=== PATIENT | female | born 1970 | race Caucasian/White ===

== ENCOUNTER 2023-12-16 06:38 | Outpatient (OUT) | payer OTHER, SELFPAY ==
[2023-12-16 06:57] LABS: Basophils Percent Auto 0.7 % (0.2-2.0); Eosinophils Percent Auto 0.9 % (0.9-7.0); Hematocrit 39.7 % (36.0-48.0); Hemoglobin 12.5 g/dL (12.0-16.0); Immature Granulocytes Abs Auto 0.01 10^3/uL (0.00-0.03); Immature Granulocytes Pct Auto 0.2 % (0.0-0.5); Lymphocytes Absolute Auto 2.5 10^3/uL (1.2-3.8); Lymphocytes Percent Auto 54.6 % (20.5-60.0); Mean Corpuscular HGB Conc 31.5 g/dL (29.9-35.2); Mean Corpuscular Hemoglobin 28.8 pg (26.7-34.0); Mean Corpuscular Volume 91.5 fL (81.0-99.0); Mean Platelet Volume 9.2 fL (9.5-13.5); Monocytes Absolute Auto 0.4 10^3/uL (0.3-0.8); Monocytes Percent Auto 9.1 % (1.7-12.0); Neutrophils Absolute Auto 1.6 10^3/uL (1.4-6.5); Neutrophils Percent Auto 34.5 % (43.0-75.0); Platelet Count 230 10^3/uL (150-450); Red Blood Count 4.34 10^6/uL (4.20-5.40); Red Cell Distribution Width 12.3 % (11.0-15.0); White Blood Count 4.5 10^3/uL (4.0-11.0)
[2023-12-16 07:10] LABS: Estimated Average Glucose 117 mg/dL; Glycohemoglobin A1C 5.7 % (4.5-6.2)
[2023-12-16 07:20] LABS: Alanine Aminotransferase 18 U/L (14-59); Albumin Level 3.7 g/dL (3.4-5.0); Alkaline Phosphatase 52 U/L (46-116); Anion Gap 9.2; Aspartate Amino Transferase 19 U/L (15-37); BUN Creatinine Ratio 12.9; Bilirubin Direct 0.1 mg/dL (0.0-0.2); Bilirubin Total 0.6 mg/dL (0.2-1.0); Calcium 9.1 mg/dL (8.5-10.1); Carbon Dioxide 31.7 mmol/L (21.0-32.0); Chloride 104 mmol/L (98-107); Chol HDL Ratio 2.6; Cholesterol 176 mg/dL (<=200); Estimated GFR (African America >60 (>=60); Estimated GFR (Non-African Ame >60 (>=60); Globulin 3.8 g/dL; Glucose 110 mg/dL (74-106); HDL Cholesterol 68 mg/dL (40-60); Potassium 3.9 mmol/L (3.5-5.1); Sodium 141 mmol/L (136-145); Total Protein 7.5 g/dL (6.4-8.2); Triglycerides 53 mg/dL (<=150); VLDL CHOLESTEROL 10.6 mg/dL
== END 2023-12-16 06:39 | disposition home or self-care (01) ==
LOC: LAB 06:38
PROVIDERS: PCP Family Medicine; Visit Provider Family Medicine
DX: Z00.00 Encounter for general adult medical examination without abnormal findings (principal); R73.01 Impaired fasting glucose
CPT/HCPCS: 36415; 80048; 80061; 80076; 83036; 85025

== ENCOUNTER 2024-03-13 10:07 | Outpatient (OUT) | payer OTHER, SELFPAY ==
--- NOTE | 2024-03-13 10:09 | MM_ITS ---
Patient Name: MATHEW RAMOS MR#: [id number] : 1970 Exam Date: 03/13/2024 Ordering Doctor: DR. ALEXIA ROJO D.O. RADIOLOGY REPORT PROCEDURE: MM TOMOSYNTHESIS SCREENING BI COMPARISON: MG MAMM SCREEN 3D JENNIFER CAD, 02/01/2023. MG MAMM SCREEN 3D JENNIFER CAD, 01/30/2022. MG MAMM SCREEN 3D JENNIFER CAD, 01/02/2021. MG MAMM JENNIFER SCRN W CAD DIG, 10/01/2013. INDICATIONS: Screening Calculator Name NCI Breast Cancer Risk Assessment Tool 5 Year Breast Cancer Risk 2.10% Lifetime Breast Cancer Risk 16.30% Personal Breast Cancer No Personal Ovarian Cancer No Treatments None Family Cancers Mother with breast cancer at age ~58. LOCATION: [facility] BREAST COMPOSITION: The breasts are heterogeneously dense,which may obscure small masses. FINDINGS: DIAGNOSTIC CATEGORY 1--NEGATIVE. RIGHT BREAST: No significant suspicious finding. No significant change has occurred. LEFT BREAST: No significant suspicious finding. No significant change has occurred. RECOMMENDATIONS: ROUTINE MAMMOGRAM AND CLINICAL EVALUATION IN 12 MONTHS. PLEASE NOTE: A NORMAL MAMMOGRAM DOES NOT EXCLUDE THE POSSIBILITY OF BREAST CANCER. A CLINICALLY SUSPICIOUS PALPABLE LUMP SHOULD BE BIOPSIED. Dictated by: Adan Pritchett M.D. on 03/13/2024 at 14:17 Approved by: Adan Pritchett M.D. on 03/13/2024 at 14:19
--- OUTSIDE RECORDS SUMMARY | 2024-03-13 10:29 | XMS_ITS | CCD ---
Author Organization [facility] Care Team Providers Care [employer] Teacher Name Role Phone Piter [place] Unavailable DR ADAN PRITCHETT Consulting Unavailable ALEXIA ROJO Admitting Unavailable ALEXIA ROJO Attending Unavailable DR PITER HOPE Primary Care Unavailable ALEXIA ROJO Consulting Unavailable DR PITER HOPE Primary Care Unavailable KELLY MILLER Attending Unavailable KELLY MILLER Consulting Unavailable KELLY MILLER Admitting Unavailable Medications Current Medications Medication Drug Class(es) Dates Sig (Normalized) Sig (Original) ibuprofen 600 mg oral tablet (3 sources) Nonsteroidal Anti-inflammatory Drug take 1 tablet by mouth three times daily at mealtime as needed Ibuprofen 600 MG 1 tablet with food or milk as needed Orally Three times a day Active Problems Problem Classification Problem Date Documented Da te Episodic/Chronic Administrative/social admission (5 sources) Other specified counseling; Translations: [Encounter for pre-employment examination] Onset: 12-18-2021 Resolved: 12-18-2021 Episodic Diabetes mellitus without complication (2 sources) Impaired fasting glucose Onset: 12-18-2021 Resolved: 12-18-2021 Episodic Osteoarthritis (8 sources) Degenerative joint disease of hand; Translations: [Primary osteoarthritis, left hand] Chronic Other nutritional; endocrine; and metabolic disorders (3 sources) Obese class I; Translations: [Obesity, unspecified] Chronic Other nutritional; endocrine; and metabolic disorders (1 source) Obesity, unspecified Chronic Other screening for suspected conditions (not mental disorders or infectious disease) (7 sources) Encounter for screening for malignant neoplasm of colon; Translations: [Encounter for screening mammogram for malignant neoplasm of breast] Onset: 02-01-2023 Episodic Residual codes; unclassified (1 source) Family history of malignant neoplasm of breast; Translations: [FAMILY HX MALIG NEOPLASM OF BREAST] Onset: 02-07-2023 Episodic Results Test Name Value Interpretation Reference Range Facil ity Occult Blood - x3on 02-15-20 Hemoglobin.gastro intestinal Ql (Stl) Negative [facility] Other QUANTIFERON TB GOLD PLUSon 0 02-03-2023 QuantiFERON Criteria Comment Normal [facility] Comment on above: Result Comment: Chau tiFERON-TB Gold Plus is a qualitative indirect test for M tuberculosis infection (including disease) and is intended for use in conjunction with risk assessment, radiography, and other medical and diagnostic evaluations. The QuantiFERON-TB Gold Plus result is determined by subtracting the Nil value from either TB antigen (Ag) value. The Mitogen tube serves as a control for the test. Performed By: #### Q NTTB #### [facility] [address] [place] [address] Dr. Lul Mckeon QuantiFERON Incubation Incubation performed. Normal [facility] Comment on above: Performed By: #### Q NTTB #### [facility] [address] [place] [address] Dr. Lul Mckeon QuantiFERON Mitogen Value 8.47 IU/mL Normal [facility] Comment on above: Performed By: #### Q NTTB #### [facility] [address] [place] [address] Dr. Lul Mckeon QuantiFERON Nil Value 0.01 IU/mL Normal [facility] Comment on above: Performed By: #### Q NTTB #### [facility] [address] [place] [address] Dr. Lul Mckeon QuantiFERON TB1 Ag Value 0.18 IU/mL Normal [facility] Comment on above: Performed By: #### Q NTTB #### [facility] [address] [place] [address] Dr. Lul Mckeon QuantiFERON TB2 Ag Value 0.10 IU/mL Normal [facility] Comment on above: Performed By: #### Q NTTB #### [facility] [address] [place] [address] Dr. Lul Mckeon QuantiFERON-TB Gold Plus Negative Normal Negative [facility] Comment on above: Result Comment: No r esponse to M tuberculosis antigens detected. Infection with M tuberculosis is unlikely, but high risk individuals should be considered for additional testing (ATS/IDSA/CDC Clinical Practice Guidelines, 2017). The reference range is an Antigen minus Nil result of <0.35 IU/mL. Chemiluminescence immunoassay methodology Performed By: #### Q NTTB #### [facility] [address] [place] [address] Dr. Lul Mckeon HEPATITIS B SURFACE ANTIBODY , QUANTon 02-02-2023 Hepatitis B Surf AB Quant >1000.0 Normal Immunity>9.9 [facility] Comment on above: Result Comment: Stat us of Immunity Anti-HBs Level Inconsistent with Immunity 0.0 - 9.9 Consistent with Immunity >9.9 Performed By: #### H EPBSRF #### [facility] [address] [place] [address] Dr. Lul Mckeon MMR IMMUNITYon 02-02-2023 Mumps Abs, IgG 81.3 AU/mL Normal Immune >10.[address] [facility] Comment on above: Result Comment: Nega tive <9.0 Equivocal 9.0 - 10.9 Positive >10.9 A positive result generally indicates past exposure to Mumps virus or previous vaccination. Performed By: #### M MRIMMU #### [facility] [address] [place] [address] Dr. Lul Mckeon Rubella Antibodies, IgG 6.39 index Normal Immune >0.99 [facility] Comment on above: Result Comment: Non- immune <0.90 Equivocal 0.90 - 0.99 Immune >0.99 Performed By: #### M MRIMMU #### [facility] [address] [place] [address] Dr. Lul Mckeon Rubeola Ab, IgG 57.8 AU/mL Normal Immune >16.4 [facility] Comment on above: Result Comment: Nega tive <13.5 Equivocal 13.5 - 16.4 Positive >16.4 Presence of antibodies to Rubeola is presumptive evidence of immunity except when acute infection is suspected. Performed By: #### M MRIMMU #### [facility] [address] [address] [address] Lul Mckeon VARICELLA IGG ABon 3 Varicella Zoster IgG 2948 index Normal Immune >165 [facility] Comment on above: Result Comment: Nega tive <135 Equivocal 135 - 165 Positive >165 A positive result generally indicates exposure to the pathogen or administration of specific immunoglobulins, but it is not indication of active infection or stage of disease. Performed By: #### V ARCEL #### [facility] [address] [address] [address] Lul Mckeon MG MAMM SCREEN 3D JENNIFER CADon 02-01-2023 MG MAMM SCREEN 3D JENNIFER CAD Patient: MATHEW RAMOS Exam Date: 02/01/2023 : 1970 Gender:F Ordering : DR. ALEXIA ROJO D.O. Admission #: [id number] Family : DR PITER HOPE Order #: [id number] CLICK HERE TO VIEW EXAM RADIOLOGY REPORT PROCEDURE: MAMMOGRAM SCREENING 3D BILATERAL CAD COMPARISON: MG MAMM SCREEN 3D JENNIFER CAD, 01/02/2021. MG MAMM SCREEN JENNIFER W CAD, 12/25/2019. MG MAMM JENNIFER SCRN W CAD DIG, 10/01/2013. MG MAMM SCREEN 3D JENNIFER CAD, 01/30/2022. INDICATIONS: Screening mammography Calculator Name NCI Breast Cancer Risk Assessment Tool 5 Year Breast Cancer Risk 2.00% Lifetime Breast Cancer Risk 16.60% Personal Breast Cancer No Personal Ovarian Cancer No Treatments None Family Cancers Mother with breast cancer at age 58. LOCATION: [facility] BREAST COMPOSITION: Heterogeneously dense,which may obscure small masses. FINDINGS: DIAGNOSTIC CATEGORY 2--BENIGN FINDING: RIGHT BREAST: No significant suspicious finding. Chronic benign-appearing lymph node lower-outer quadrant. No significant change has occurred. LEFT BREAST: No significant suspicious finding. No significant change has occurred. RECOMMENDATIONS: ROUTINE MAMMOGRAM AND CLINICAL EVALUATION IN 12 MONTHS. PLEASE NOTE: A NORMAL MAMMOGRAM DOES NOT EXCLUDE THE POSSIBILITY OF BREAST CANCER. A CLINICALLY SUSPICIOUS PALPABLE LUMP SHOULD BE BIOPSIED. Dictated by: Adan Pritchett M.D. on 02/01/2023 at 12:02 Approved by: Adan Pritchett M.D. on 02/01/2023 at 12:04 Normal [facility] Vital Signs Date Time Vital Sign Value Performing Clinician Facility 12-20-2022 09:00-0500 Body height 167.64 cm Piter Oberer Other [facility] Other 12-20-2022 09:00-0500 Body mass index (BMI) [Ratio] 31.58 kg/m2 Piter Oberer Other [facility] Other 12-20-2022 09:00-0500 Body temperature 98 [degF] Piter Oberer Other [facility] Other 12-20-2022 09:00-0500 Body weight 88.77 kg Piter Oberer Other [facility] Other 12-20-2022 09:00-0500 Diastolic blood pressure 77 mm[Hg] Piter Oberer Other [facility] Other 12-20-2022 09:00-0500 Respiratory rate 16 /min Piter Oberer Other [facility] Other 12-20-2022 09:00-0500 SaO2% (BldA) [Mass fraction] 100 % Piter Oberer Other [facility] Other 12-20-2022 09:00-0500 Systolic blood pressure 126 mm[Hg] Ipter Oberer Other [facility] Other 12-18-2021 11:00-0500 Body height 167.64 cm Piter Oberer Other [facility] Other 12-18-2021 11:00-0500 Body mass index (BMI) [Ratio] 31.28 kg/m2 Piter Oberer Other [facility] Other 12-18-2021 11:00-0500 Body temperature 97.9 [degF] Piter Oberer Other [facility] Other 12-18-2021 11:00-0500 Body weight 87.91 kg Piter Oberer Other [facility] Other 12-18-2021 11:00-0500 Diastolic blood pressure 68 mm[Hg] Piter Oberer Other [facility] Other 12-18-2021 11:00-0500 Respiratory rate 16 /min Piter Oberer Other [facility] Other 12-18-2021 11:00-0500 SaO2% (BldA) [Mass fraction] 97 % Piter Oberer Other [facility] Other 12-18-2021 11:00-0500 Systolic blood pressure 127 mm[Hg] Piter Oberer Other [facility] Other Encounters Encounter Date Encounter Type Care Provider Facility Start: 02-14-2023 End: 02-14-2023 ambulatory Piter Oberer Other [facility] Other Start: 02-14-2023 Nursing evaluation o f patient and report Piter Oberer [facility] Start: 02-01-2023 End: 02-02-[address] ADAN PRITCHETT Facility: Start: 12-20-2022 End: 12-20-2022 ambulatory Piter Oberer Other [facility] Other Start: 12-20-2022 Encounter for genera l adult medical examination without abnormal findings Piter Oberer [facility] Start: 12-20-2022 Periodic preventive med est patient 40-64yrs Piter Oberer [facility] Start: 12-18-2021 End: 12-18-2021 ambulatory Piter Oberer Other [facility] Other Start: 12-18-2021 Encounter for genera l adult medical examination without abnormal findings Piter Oberer [facility] Start: 12-18-2021 Periodic preventive med est patient 40-64yrs Piter Oberer [facility] Immunizations Immunization Date Immunization Notes Care Provider Fa cility 12-31-2019 influenza, injectable, quadrivalent, preservative free Piter Oberer Other [facility] Other 12-31-2019 tetanus toxoid, reduced diphtheria toxoid, and acellular pertussis vaccine, adsorbed Piter Oberer Other [facility] Other 11-05-2011 tetanus toxoid, reduced diphtheria toxoid, and acellular pertussis vaccine, adsorbed Pitre Oberer Other [facility] Other NEGATED: Highlighted row has not occurred!12-27-2020 influenza, seasonal, injectable Patient Objection Piter Oberer Other [facility] Other NEGATED: Highlighted row has not occurred!10-24-2017 influenza, seasonal, injectable Patient Objection Piter Oberer Other [facility] Other Payers Date Payer Category Payer Unknown [id number] 1957 Self-pay 1957 Unknown [id number] . [id number] Unknown [id number] Social History Date Type Detail Facility Unknown if ever smoked [facility] Other Sex Assigned At Sex Assigned At Bir th [facility] Other Evaluation note 02-14-2023 Note Date & Type Note Facility 02-14-2023 Evaluation note Encounter Date Diagnosis Assessment Notes February, Colon cancer screening (ICD-10 - Z12.11) [facility] Other Evaluation note 12-20-2022 Note Date & Type Note Facility 12-20-2022 Evaluation note Encounter Date Diagnosis Assessment Notes Dec, Fasting hyperglycemia (ICD-10 - R73.01) She had a single episode of elevated fasting blood sugar, hemoglobin A1c was normal. She has no family history of diabetes. We will repeat fasting blood sugar and hemoglobin A1c with next year's checkup. I did offer to do labs sooner and she declined, Prediabetes: strategies for a healthy life material was published Dec, Colon cancer screening (ICD-10 - Z12.11) We discussed that if she has family history of colon polyps that the recommended screening for her is colonoscopy. We also again discussed, in general, that I view the colonoscopy as the [place] and stool sampling techniques as the [place] . She elected to take 3 home Hemoccult cards and if she decides to pursue colonoscopy she will call us for referral. Dec, Obesity (BMI 30.0-34.9) (ICD-10 - E66.9) Healthy diet, exercise, weight loss encouraged Dec, Generalized OA (ICD-10 - M15.9) I simply note this on exam. We did not discuss arthritis today Dec, Well adult exam (ICD-10 - Z00.00) Well care discussed She will follow-up with Dr. Rojo, colon cancer screening as above. Pending that, cancer screening will be up-to-date. Healthy diet, exercise, weight encouraged Discussed vaccines. She had natural shingles. She does not want any vaccines including flu shot, Shingrix, COVID-vaccine. , Health screenings for women material was published Dec, Other RTO 1 year preceded by fasting CBC, BMP, hepatic panel, lipid profile, hemoglobin A1c and sooner as needed. [facility] Other Evaluation note 12-18-2021 Note Date & Type Note Facility 12-18-2021 Evaluation note Encounter Date Diagnosis Assessment Notes Dec, Wellness examination (ICD-10 - Z00.00) Well care discussed Healthy activity, diet, staying physically fit encouraged Female cancer screening up-to-date Dr. Rojo Colon cancer screening options discussed, stool sampling such as Hemoccult versus colonoscopy. Told her it is the [place] versus the [place] . She wants to think about it and she will call us with her screening decision. If she chooses colonoscopy, we will refer her. I did tell her it is important to screen at least in some fashion Except for COVID, vaccines up-to-date. See dictation below. Because they were normal last year, we will repeat screening labs in 2 to 4 years from now. Dec, Counseled about COVID-19 virus infection (ICD-10 - Z71.89) Discussed the Covid vaccine is not nearly as new as it was a couple years ago and there is a lot of safety information about it. It appears to be quite safe. We also discussed worldwide we are approaching 6 million deaths, in [place] 1 million deaths. We did discuss that natural COVID (which she had) does confer some immunity. It perhaps is not as strong as the vaccine. We discussed that the strongest immunity appears to be in those who have had natural Covid and the vaccine. She still is not ready. She knows the vaccine is readily available in the community now if she elects to pursue it. Dec, Fasting hyperglycemia (ICD-10 - R73.01) There is no known family history of diabetes. We discussed last years fasting hyperglycemia, normal hemoglobin A1c. I offered to repeat hemoglobin A1c. She elected to wait 2 to 4 years. Dec, Other RTO 1 year and sooner as needed. Should not need labs next visit. [facility] Other History general Narrative - Reported Note Date & Type Note Facility History general Narrative - Reported Type Medical History Dr Rojo- female exams Medical History Natural Shingles- 2018 [facility] Other Summary Purpose Family History No Family History Records Found Advance Directives No Advanced Directives Records Found Additional Source Comments REASON FOR VISIT (unrecogniz ed section and content) 1 year Follow up, GERD impro ralph LB, pharmacy [facility] LB, doing well no concerns at this time LB, Mammogram last December, Age 89 year Follow up, pharmacy: [facility] [place] - jld, refills: none needed - jld, mammogram: 01.30.22 - jld, flu shot 12.31.19 - declines today - jld, colonoscopy: was supposed to last year, did not schedule. Open to hemoccult - jld, pt is doing well, denies c/o at this time - mid, Dr. Alexandre results INFORMATION SOURCE (unrecogn ized section and content) DATE CREATED AUTHOR 02/08/2023 [facility] FOR RECORDS PERTAINING TO PATIENTS WHO ARE OR HAVE BEEN ENROLLED IN A CHEMICAL DEPENDENCY/SUBSTANCEABUSE PROGRAM, SOME INFORMATION MAY BE OMITTED. This clinical summary was aggregated from multiple sources. Caution should be exercised in using it in the provision of clinical care. This summary normalizes information from multiple sources, and as a consequence, information in this document may materially change the coding, format and clinical context of patient data. In addition, data may be omitted in some cases. CLINICAL DECISIONS SHOULD BE BASED ON THE PRIMARY CLINICAL RECORDS. [email or web address] provides no warranty or guarantee of the accuracy or completeness of information in this document.
== END 2024-03-13 10:08 | disposition home or self-care (01) ==
LOC: MAMMO 10:07
PROVIDERS: PCP Family Medicine; Visit Provider Obstetrics & Gynecology
DX: Z12.31 Encounter for screening mammogram for malignant neoplasm of breast (principal); Z80.3 Family history of malignant neoplasm of breast
CPT/HCPCS: 77063; 77067

== ENCOUNTER 2024-12-29 09:59 | Outpatient (OUT) | payer OTHER, SELFPAY ==
--- OUTSIDE RECORDS SUMMARY | 2024-12-29 10:05 | XMS_ITS | CCD ---
Author Organization [facility] Care Team Providers Care Marriage And Family Teacher Name Role Phone Piter Hope Unavailable DR ADAN PRITCHETT Consulting Unavailable ALEXIA ROJO Admitting Unavailable ALEXIA ROJO Attending Unavailable DR PITER HOPE Primary Care Unavailable ALEXIA ROJO Consulting Unavailable DR PITER HOPE Primary Care Unavailable KELLY MILLER Attending Unavailable KELLY MILLER Consulting Unavailable KELLY MILLER Admitting Unavailable SRINIVAS ROSALES Attending Unavailable PITER HOPE Referring Unavailable Steven Kam DO Attending Provider Medications Current Medications Medication Drug Class(es) Dates Sig (Normalized) Sig (Original) ibuprofen 600 mg oral tablet (5 sources) Nonsteroidal Anti-inflammatory Drug Start: 12-23-2023 End: 12-22-2024 take 1 tablet by mouth three times daily as needed Ibuprofen 600 mg tablet Active 600 MG PO Three times daily as needed December 22, 2024 2:28pm 1 tablet with food or milk as needed Orally Three times a day take 1 tablet by lul th three times daily at mealtime as needed Ibuprofen 600 MG 1 tablet with food or milk as needed Orally Three times a day Active Problems Problem Classification Problem Date Documented Da te Episodic/Chronic Administrative/social admission (5 sources) Other specified counseling; Translations: [Encounter for pre-employment examination] Onset: 12-18-2021 Resolved: 12-18-2021 Episodic Diabetes mellitus without complication (3 sources) Impaired fasting glucose; Translations: [Impaired glucose tolerance] Onset: 12-18-2021 Resolved: 12-18-2021 Episodic Osteoarthritis (9 sources) Degenerative joint disease of hand; Translations: [Primary osteoarthritis, left hand] Chronic Other infections; including parasitic (1 source) History of herpes zoster; Translations: [Personal history of other infectious and parasitic diseases] 12-23-2023 Episodic Other nutritional; endocrine; and metabolic disorders (4 sources) Obese class I; Translations: [Obesity, unspecified] 12-23-2023 Chronic Other nutritional; endocrine; and metabolic disorders (1 source) Obesity, unspecified Chronic Other screening for suspected conditions (not mental disorders or infectious disease) (8 sources) Encounter for screening for malignant neoplasm of colon; Translations: [Encounter for screening mammogram for malignant neoplasm of breast] Onset: 02-01-2023 Episodic Residual codes; unclassified (1 source) Family history of malignant neoplasm of breast; Translations: [FAMILY HX MALIG NEOPLASM OF BREAST] Onset: 02-07-2023 Episodic Residual codes; unclassified (1 source) Family history of polyp of colon; Translations: [Family history of colonic polyps] 12-23-2023 Episodic Results Test Name Value Interpretation Reference Range Facil ity Occult Blood - x3on 02-15-20 Hemoglobin.gastro intestinal Ql (Stl) Negative [facility] Other QUANTIFERON TB GOLD PLUSon 0 02-03-2023 QuantiFERON Criteria Comment Normal [facility] Comment on above: Result Comment: Chau tiFERON-TB [...] test. Performed By: #### Q NTTB #### [facility] [address] [place] [address] Dr. Lul Mckeon QuantiFERON Incubation Incubation performed. Normal [facility] Comment on above: Performed By: #### Q NTTB #### [facility] [address] [address] [address] Lul Mckeon QuantiFERON Mitogen Value 8.47 IU/mL Normal [facility] Comment on above: Performed By: #### Q NTTB #### [facility] [address] [place] [address] Dr. Lul Mckeon QuantiFERON Nil Value 0.01 IU/mL [facility] Comment on above: Performed By: #### Q NTTB #### [facility] [address] [place] [address] Dr. Lul Mckeon QuantiFERON TB1 Ag Value 0.18 IU/mL Normal [facility] Comment on above: Performed By: #### Q NTTB #### [facility] [address] [address] [address] Lul Mckeon QuantiFERON TB2 Ag Value 0.10 IU/mL Normal [facility] Comment on above: Performed By: #### Q NTTB #### [facility] [address] [address] [address] Lul Mckeon QuantiFERON-TB Gold Plus Negative Normal Negative [facility] Comment on above: Result Comment: No r esponse to M tuberculosis antigens detected. Infection with M tuberculosis is unlikely, but high risk individuals should be considered for additional testing (ATS/IDSA/CDC Clinical Practice Guidelines, 2017). The reference range is an Antigen minus Nil result of <0.35 IU/mL. Chemiluminescence immunoassay methodology Performed By: #### Q NTTB #### [facility] [address] [place] [address] Dr. Lul Mckeon HEPATITIS B SURFACE ANTIBODY , QUANTon 02-02-2023 Hepatitis B Surf AB Quant >1000.0 Normal Immunity>9.9 [facility] Comment on above: Result Comment: Stat us of Immunity Anti-HBs Level Inconsistent with Immunity 0.0 - 9.9 Consistent with Immunity >9.9 Performed By: #### H EPBSRF #### [facility] [address] [place] [address] Dr. Lul Mckeon MMR IMMUNITYon 02-02-2023 Mumps Abs, IgG 81.3 AU/mL Normal Immune >10.[address] [facility] Comment on above: Result Comment: Nega tive <9.0 Equivocal 9.0 - 10.9 Positive >10.9 A positive result generally indicates past exposure to Mumps virus or previous vaccination. Performed By: #### M MRIMMU #### [facility] [address] [place] [address] Dr. Lul Mckeon Rubella Antibodies, IgG 6.39 index Normal Immune >0.[address] [facility] Comment on above: Result Comment: Non- immune <0.90 Equivocal 0.90 - 0.99 Immune >0.99 Performed By: #### M MRIMMU #### [facility] [address] [place] [address] Dr. Lul Mckeon Rubeola Ab, IgG 57.8 AU/mL Normal Immune >16.4 [facility] Comment on above: Result Comment: Nega tive <13.5 Equivocal 13.5 - 16.4 Positive >16.4 Presence of antibodies to Rubeola is presumptive evidence of immunity except when acute infection is suspected. Performed By: #### M MRIMMU #### [facility] [address] [place] [address] Dr. Lul Mckeon VARICELLA IGG ABon 3 Varicella Zoster IgG 2948 index Normal Immune >[address] [facility] Comment on above: Result Comment: Nega tive <135 Equivocal 135 - 165 Positive >165 A positive result generally indicates exposure to the pathogen or administration of specific immunoglobulins, but it is not indication of active infection or stage of disease. Performed By: #### V ENE #### [facility] [address] [place] [address] Dr. Lul Mckeon MG MAMM SCREEN 3D JENNIFER CADon 02-01-2023 MG MAMM SCREEN 3D JENNIFER CAD Patient: KAYLI RAMOS Exam Date: 02/01/2023 : 1970 Gender:F Ordering : DR. ALEXIA ROJO D.O. Admission #: [id number] Family : DR PITER HOPE Order #: [id number] CLICK HERE TO VIEW EXAM RADIOLOGY REPORT [...] breast cancer at age 60. LOCATION: [facility] BREAST COMPOSITION: Heterogeneously dense,which may obscure [...] Pritchett M.D. on 02/01/2023 at 12:04 Normal [facility] Vital Signs Date Time Vital Sign Value Performing Clinician Facility 12-22-2024 11:46-0400 Body height 167.64 cm Steven Visci DO Work Phone: [facility] 12-22-2024 11:46-0400 Body mass index (BMI) [Ratio] 33.6 kg/m2 Steven Visci DO Work Phone: [facility] 12-22-2024 11:46-0400 Body weight 94.54 kg Steven Visci DO Work Phone: [facility] 12-22-2024 11:46-0400 Diastolic blood pressure 83 mm[Hg] Steven Visci DO Work Phone: [facility] 12-22-2024 11:46-0400 Heart rate 80 /min Steven Visci DO Work Phone: [facility] 12-22-2024 11:46-0400 Respiratory rate 16 /min Steven Visci DO Work Phone: [facility] 12-22-2024 11:46-0400 SaO2% (BldA) [Mass fraction] 97 % Steven Visci DO Work Phone: [facility] 12-22-2024 11:46-0400 Systolic blood pressure 125 mm[Hg] Steven Visci DO Work Phone: [facility] 12-20-2022 09:00-0500 Body height 167.64 cm Piter Oberer Other [facility] Other 12-20-2022 09:00-0500 Body mass index (BMI) [Ratio] 31.58 kg/m2 Piter Oberer Other [facility] Other 12-20-2022 09:00-0500 Body temperature 98 [degF] Piter Oberer Other [facility] Other 12-20-2022 09:00-0500 Body weight 88.77 kg Piter Oberer Other [facility] Other 12-20-2022 09:00-0500 Diastolic blood pressure 77 mm[Hg] Piter Oberer Other [facility] Other 12-20-2022 09:00-0500 Respiratory rate 16 /min Piter Oberer Other [facility] Other 12-20-2022 09:00-0500 SaO2% (BldA) [Mass fraction] 100 % Piter Oberer Other [facility] Other 12-20-2022 09:00-0500 Systolic blood pressure 126 mm[Hg] Piter Oberer Other [facility] Other 12-18-2021 11:00-0500 Body height 167.64 cm Piter Oberer Other [facility] Other 12-18-2021 11:00-0500 Body mass index (BMI) [Ratio] 31.28 kg/m2 Piter Oberer Other [facility] Other 12-18-2021 11:00-0500 Body temperature 97.9 [degF] Piter Oberer Other [facility] Other 12-18-2021 11:00-0500 Body weight 87.91 kg Piter Oberer Other [facility] Other 12-18-2021 11:00-0500 Diastolic blood pressure 68 mm[Hg] Piter Oberer Other [facility] Other 12-18-2021 11:00-0500 Respiratory rate 16 /min Piter Oberer Other [facility] Other 12-18-2021 11:00-0500 SaO2% (BldA) [Mass fraction] 97 % Piter Oberer Other [facility] Other 12-18-2021 11:00-0500 Systolic blood pressure 127 mm[Hg] Piter Oberer Other [facility] Other Encounters Encounter Date Encounter Type Care Provider Facility Start: 12-22-2024 End: 12-22-2024 ambulatory Steven Visci DO Work Phone: [facility] Work Phone: Start: 12-22-2024 End: 12-22-2024 Patient encounter procedure Steven Visci DO Work Phone: [facility] Work Phone: Start: 04-02-2024 End: 04-02-2024 ambulatory SRINIVAS ROSALES Not Available Start: 02-14-2023 End: 02-14-2023 ambulatory Piter Oberer Other [facility] Other Start: 02-14-2023 Nursing evaluation o f patient and report Piter Oberer [facility] Start: 02-01-2023 End: 02-02-[address] ADAN PRITCHETT Facility:[facility] Start: 12-20-2022 End: 12-20-2022 ambulatory Piter Oberer Other [facility] Other Start: 12-20-2022 Encounter for genera l adult medical examination without abnormal findings Piter Oberer [facility] Start: 12-20-2022 Periodic preventive med est patient 40-64yrs Piter Oberer [facility] Start: 12-18-2021 End: 12-18-2021 ambulatory Piter Oberer Other [facility] Other Start: 12-18-2021 Encounter for genera l adult medical examination without abnormal findings Piter Oberer [facility] Start: 12-18-2021 Periodic preventive med est patient 40-64yrs Piter Oberer [facility] Start: 01-18-2004 Evaluation and management of inpatient Steven Visci DO Work Phone: [facility] Work Phone: Immunizations Immunization Date Immunization Notes Care Provider Fa [facility] 12-31-2019 influenza, injectable, quadrivalent, preservative free Piter Oberer Other [facility] 12-31-2019 tetanus toxoid, reduced diphtheria toxoid, and acellular pertussis vaccine, adsorbed Piter Oberer Other [facility] 11-05-2011 tetanus toxoid, reduced diphtheria toxoid, and acellular pertussis vaccine, adsorbed Piter Oberer Other [facility] NEGATED: Highlighted row has not occurred!12-27-2020 influenza, seasonal, injectable Patient Objection Piter Oberer Other [facility] Other NEGATED: Highlighted row has not occurred!10-24-2017 influenza, seasonal, injectable Patient Objection Pitre Hope Other [facility] Other Payers Date Payer Category Payer Private Health Insurance [id number] 1970 Unknown [id number] 1970 Unknown [id number] 1957 Self-pay 1957 Unknown [id number] 2. [id number] Unknown [id number] Social History Date Type Detail Facility Unknown if ever smoked [facility] Other Sex Assigned At Sex Assigned At Bir th [facility] Other Start: 12-22-2024 Tobacco smoking status NHIS Never smoked tobacco (finding) [facility] Start: 12-22-2024 Sex Female (finding) [place] Start: 1970 Sex Assigned At Female F [facility] Evaluation note 02-14-2023 Note Date & Type Note Facility 02-14-2023 Evaluation note Encounter Date Diagnosis Assessment Notes February, Colon cancer screening (ICD-10 - Z12.11) [facility] Other Evaluation note 12-20-2022 Note Date & [...] that I view the colonoscopy as the [place] and stool sampling techniques as the [place] [...] profile, hemoglobin A1c and sooner as needed. [facility] Other Evaluation note 12-18-2021 Note Date & [...] needed. Should not need labs next visit. [facility] Other Evaluation note Note Date & Type Note Facility Evaluation note No assessment information availa [facility] Work Phone: History general Narrative - Reported Note Date & Type Note Facility History general Narrative - Reported Type Medical History Dr Rojo- female exams Medical History Natural Shingles- 2017 [facility] Other Summary Purpose Family History Relationship Condition Age at Onset Recorded Date/T ruthie father Hypertension Unknown mother Malignant neoplasm Unknown Vertigo Unknown Advance Directives Advance Directive Response Recorded Date/ Time Advance Directives No November 11, 2017 1:07pm Chief Complaint and Reason for Visit Chief Complaint Admit Date ^ January 18, 2004 6:06 am 1 year f/u December 22, 2024 2:1 9pm Additional Source Comments REASON FOR VISIT (unrecogniz ed section and content) 1 year Follow up, GERD impro ralph LB, pharmacy [facility], doing well no concerns at this time LB, Mammogram last December, Age 89 year Follow up, pharmacy: [facility] - jld, refills: none needed - jld, mammogram: 01.30.22 - jld, flu shot 12.31.19 - declines today - jld, colonoscopy: was supposed to last year, did not schedule. Open to hemoccult - jld, pt is doing well, denies c/o at this time - heather, Dr. Rojohemoccult results INFORMATION SOURCE (unrecogn ized section and content) DATE CREATED AUTHOR 02/08/2023 [facility] DATE CREATED AUTHOR AUTHOR'S EMANUEL MARTINEZ 04/03/2024 [facility] Care Teams (unrecognized sec tion and content) Team Status: Active Member Role Status Dates Piter Hope DO Primary Care Provider Active Team Status: Active Member Role Status Dates Steven Kam DO Attending Provider Active Sta rt: January 18, 2004 Team Status: Inactive Member Role Status Dates Piter Hope DO Primary Care Provide r, Attending Provider Active Start: December 22, 2024 End: December 22, 2024 Goals (unrecognized section and content) Goals may be documented in a n alternate section FOR RECORDS PERTAINING TO PATIENTS WHO ARE [...] BE BASED ON THE PRIMARY CLINICAL RECORDS. [facility] [employer] [facility]. provides no warranty or guarantee of the accuracy or completeness of information in this document.
[2024-12-29 10:45] LABS: Estimated Average Glucose 111 mg/dL; Glycohemoglobin A1C 5.5 % (4.5-6.2)
[2024-12-29 11:22] LABS: Chol HDL Ratio 2.3; Cholesterol 172 mg/dL (<=200); HDL Cholesterol 74 mg/dL (40-60); Thyroid Stimulating Hormone 0.773 uIU/mL (0.358-3.740); Triglycerides 34 mg/dL (<=150); VLDL CHOLESTEROL 6.8 mg/dL
== END 2024-12-29 10:00 | disposition home or self-care (01) ==
LOC: LAB 10:00
PROVIDERS: PCP Family Medicine; Visit Provider Family Medicine
DX: E78.00 Pure hypercholesterolemia, unspecified (principal); I10 Essential (primary) hypertension; R73.02 Impaired glucose tolerance (oral); Z79.899 Other long term (current) drug therapy
CPT/HCPCS: 36415; 80061; 83036; 84436; 84443

== ENCOUNTER 2025-03-17 07:20 | Outpatient (OUT) | payer OTHER, SELFPAY ==
--- OUTSIDE RECORDS SUMMARY | 2025-03-17 07:22 | XMS_ITS | Encounter Summary ---
Author Organization [facility] Address [address] [place] [address] Care Team Providers Care Laboratory Phlebotomist Name Role Phone Piter Hope MD Primary Care Provider [phone] Encounter Details Date Type Department Care Team (Late st Contact Info) Description 05/11/[address] [facility] [address] [facility] [address] [place] [id number] Edwin Mata, DO [address] [facility] [address] [place] [address] Social History Tobacco Use Types Packs/Day Years Used Date Smoking Tobacco: Never Smokeless Tobacco: Never Alcohol Use Standard Drinks/Week Comments Yes 1 (1 standard drink = 0.6 oz pur e alcohol) Social Comments Unknown Sex and Gender Information Value Date Recorded Sex Assigned at Not on file Legal Sex Female 6:42 PM EDT Gender Identity Not on file Sexual Orientation Not on file documented as of this encounter Plan of Treatment Upcoming Encounters Date Type Department Care Team (Late st Contact Info) Description 05/19/2025 2:30 PM EDT Office Visit [facility] [address] [place] [id number] Shayy Conner, DO [address] [place] [address] documented as of this encounter Procedures Procedure Name Priority Date/Time Associated Diagnosis Comments COLONOSCOPY Routine 05/11/2024 3:20 PM EDT documented in this encounter Results * Colonoscopy (05/11/2024 3:20 PM EDT) Anatomical Region Laterality Modality Endoscopy us Edwin Mata DO ENDOSCOPY PROCEDURE ORDER ISAÍAS Final Result documented in this encounter Visit Diagnoses Not on filedocumented in this encounter Care Teams Laboratory Phlebotomist Relationship Specialty Start Date End Date Piter Hope MD PCP - General Family Medicine 04/04/23 documented as of this encounter
--- NOTE | 2025-03-17 07:23 | MM_ITS ---
Patient Name: MATHEW RAMOS MR#: [id number] : 1970 Exam Date: 03/17/2025 Ordering Doctor: DR. ALEXIA ROJO D.O. RADIOLOGY REPORT PROCEDURE: MM TOMOSYNTHESIS SCREENING BI COMPARISON: MM TOMOSYNTHESIS SCREENING BI, 03/13/2024. MG MAMM SCREEN 3D JENNIFER CAD, 02/01/2023. MG MAMM SCREEN 3D JENNIFER CAD, 01/30/2022. MG MAMM JENNIFER SCRN W CAD DIG, 10/01/2013. INDICATIONS: Screening Calculator Name NCI Breast Cancer Risk Assessment Tool 5 Year Breast Cancer Risk 2.20% Lifetime Breast Cancer Risk 16.10% Personal Breast Cancer No Personal Ovarian Cancer No Treatments None Family Cancers Mother with breast cancer at age ~58. LOCATION: [facility] BREAST COMPOSITION: The breasts are heterogeneously dense,which may obscure small masses. FINDINGS: RIGHT BREAST: No significant suspicious finding. Benign-appearing lymph nodes are noted along the chest wall . LEFT BREAST: No significant suspicious finding. Benign-appearing lymph nodes are noted along the chest wall. DIAGNOSTIC CATEGORY 2--BENIGN FINDING: RECOMMENDATIONS: ROUTINE MAMMOGRAM AND CLINICAL EVALUATION IN 12 MONTHS. PLEASE NOTE: A NORMAL MAMMOGRAM DOES NOT EXCLUDE THE POSSIBILITY OF BREAST CANCER. A CLINICALLY SUSPICIOUS PALPABLE LUMP SHOULD BE BIOPSIED. Dictated by: Bimal Pete MD on 03/17/2025 at 12:54 Approved by: Bimal Pete MD on 03/17/2025 at 12:57
--- OUTSIDE RECORDS SUMMARY | 2025-03-17 07:23 | XMS_ITS | CCD ---
Author Organization [facility] Care Team Providers Care Control Systems Engineer Name Role Phone P[place] Unavailable DR [...] x3on 02-15-20 Hemoglobin.gastro intestinal Ql (Stl) Negative [employer] Other QUANTIFERON TB GOLD PLUSon 0 02-03-2023 QuantiFERON Criteria Comment Normal [facility] Comment on above: Result Comment: Chau tiFERON-TB [...] test. Performed By: #### Q NTTB #### [facility] [address] [place] [address] Dr. uLl Mckeon QuantiFERON Incubation Incubation performed. Normal [facility] Comment on above: Performed By: #### Q NTTB #### [facility] [address] [address] [address] Lul Mckeon QuantiFERON Mitogen Value 8.47 IU/mL Normal [facility] Comment on above: Performed By: #### Q NTTB #### [facility] [address] [place] [address] Dr. Lul Mckeon QuantiFERON Nil Value 0.01 IU/mL [facility] Comment on above: Performed By: #### Q NTTB #### [facility] [address] [place] [address] Dr. Lul Mckeon QuantiFERON TB1 Ag Value 0.18 IU/mL Normal [facility] Comment on above: Performed By: #### Q NTTB #### [facility] [address] [address] [address] Lul Mckeon QuantiFERON TB2 Ag Value 0.10 IU/mL Normal [facility] Comment on above: Performed By: #### Q NTTB #### [facility] [address] [address] [address] Lul Mckeon QuantiFERON-TB Gold Plus Negative Normal Negative [facility] Comment on above: Result Comment: No r esponse to M tuberculosis antigens detected. Infection with M tuberculosis is unlikely, but high risk individuals should be considered for additional testing (ATS/IDSA/CDC Clinical Practice Guidelines, 2017). The reference range is an Antigen minus Nil result of <0.35 IU/mL. Chemiluminescence immunoassay methodology Performed By: #### Q NTTB #### [facility] [address] [place] [address] Dr. Lul Mckeon HEPATITIS B SURFACE ANTIBODY , QUANTon 02-02-2023 Hepatitis B Surf AB Quant >1000.0 Normal Immunity>9.9 [facility] Comment on above: Result Comment: Stat us of Immunity Anti-HBs Level Inconsistent with Immunity 0.0 - 9.9 Consistent with Immunity >9.9 Performed By: #### H EPBSRF #### [facility] [address] [place] [address] Dr. Lul Mckeon MMR IMMUNITYon 02-02-2023 Mumps Abs, IgG 81.3 AU/mL Normal Immune >10.9 [facility] Comment on above: Result Comment: Nega tive <9.0 Equivocal 9.0 - 10.9 Positive >10.9 A positive result generally indicates past exposure to Mumps virus or previous vaccination. Performed By: #### M MRIMMU #### [facility] [address] [place] [address] Dr. Lul Mckeon Rubella Antibodies, IgG 6.39 index Normal Immune >0.[address] [facility] Comment on above: Result Comment: Non- immune <0.90 Equivocal 0.90 - 0.99 Immune >0.99 Performed By: #### M MRIMMU #### [facility] [address] [place] [address] Dr. Lul Mckeon Rubeola Ab, IgG 57.8 AU/mL Normal Immune >16.4 [facility] Comment on above: Result Comment: Nega tive <13.5 Equivocal 13.5 - 16.4 Positive >16.4 Presence of antibodies to Rubeola is presumptive evidence of immunity except when acute infection is suspected. Performed By: #### M MRIMMU #### [facility] [address] [place] [address] Dr. Lul Mckeon VARICELLA IGG ABon 3 Varicella Zoster IgG 2948 index Normal Immune >[address] [facility] Comment on above: Result Comment: Nega tive <135 Equivocal 135 - 165 Positive >165 A positive result generally indicates exposure to the pathogen or administration of specific immunoglobulins, but it is not indication of active infection or stage of disease. Performed By: #### V ENE #### [facility] [address] [place] [address] Dr. Lul Mckeon MG MAMM SCREEN 3D JENNIFER CADon 02-01-2023 MG MAMM SCREEN 3D JENNIFER CAD Patient: KAYLI RAMOS Exam Date: 02/01/2023 : 1970 Gender:F Ordering : DR. ALEXIA ROJO D.O. Admission #: [id number] Family : DR PITER HOPE Order #: [id number] CLICK HERE TO VIEW EXAM RADIOLOGY REPORT [...] breast cancer at age 60. LOCATION: [facility] BREAST COMPOSITION: Heterogeneously dense,which may obscure [...] M.D. on 02/01/2023 at 12:[address] [facility] Vital Signs Date Time Vital Sign Value Performing Clinician Facility 12-22-2024 11:46-0400 Body height 167.64 cm Steven Visci DO Work Phone: [facility] 12-22-2024 11:46-0400 Body mass index (BMI) [Ratio] 33.6 kg/m2 Steven Visci DO Work Phone: [facility] 12-22-2024 11:46-0400 Body weight 94.54 kg Steven Visci DO Work Phone: [facility] 12-22-2024 11:46-0400 Diastolic blood pressure 83 mm[Hg] Steven Visci DO Work Phone: [facility] 12-22-2024 11:46-0400 Heart rate 80 /min Steven Visci DO Work Phone: [facility] 12-22-2024 11:46-0400 Respiratory rate 16 /min Steven Visci DO Work Phone: [facility] 12-22-2024 11:46-0400 SaO2% (BldA) [Mass fraction] 97 % Steven Visci DO Work Phone: [facility] 12-22-2024 11:46-0400 Systolic blood pressure 125 mm[Hg] Steven Visci DO Work Phone: [facility] 12-20-2022 09:00-0500 Body height 167.64 cm Piter Oberer Other [employer] Other 12-20-2022 09:00-0500 Body mass index (BMI) [Ratio] 31.58 kg/m2 Piter Oberer Other [employer] Other 12-20-2022 09:00-0500 Body temperature 98 [degF] Piter Oberer Other [employer] Other 12-20-2022 09:00-0500 Body weight 88.77 kg Piter Oberer Other [employer] Other 12-20-2022 09:00-0500 Diastolic blood pressure 77 mm[Hg] Piter Oberer Other [employer] Other 12-20-2022 09:00-0500 Respiratory rate 16 /min Piter Oberer Other [employer] Other 12-20-2022 09:00-0500 SaO2% (BldA) [Mass fraction] 100 % Piter Oberer Other [employer] Other 12-20-2022 09:00-0500 Systolic blood pressure 126 mm[Hg] Piter Oberer Other [employer] Other 12-18-2021 11:00-0500 Body height 167.64 cm Piter Oberer Other [employer] Other 12-18-2021 11:00-0500 Body mass index (BMI) [Ratio] 31.28 kg/m2 Piter Oberer Other [employer] Other 12-18-2021 11:00-0500 Body temperature 97.9 [degF] Piter Oberer Other [employer] Other 12-18-2021 11:00-0500 Body weight 87.91 kg Piter Oberer Other [employer] Other 12-18-2021 11:00-0500 Diastolic blood pressure 68 mm[Hg] Piter Oberer Other [employer] Other 12-18-2021 11:00-0500 Respiratory rate 16 /min Piter Oberer Other [employer] Other 12-18-2021 11:00-0500 SaO2% (BldA) [Mass fraction] 97 % Piter Oberer Other [employer] Other 12-18-2021 11:00-0500 Systolic blood pressure 127 mm[Hg] Piter Oberer Other [employer] Other Encounters Encounter Date Encounter Type Care Provider Facility Start: 12-22-2024 End: 12-22-2024 ambulatory Steven Visci DO Work Phone: [facility] Work Phone: Start: 12-22-2024 End: 12-22-2024 Patient encounter procedure Steven Visci DO Work Phone: [facility] [place] Work Phone: Start: 04-02-2024 End: 04-02-2024 ambulatory SRINIVAS ROSALES Not Available Start: 02-14-2023 End: 02-14-2023 ambulatory Piter Oberer Other [employer] Other Start: 02-14-2023 Nursing evaluation o f patient and report Piter Oberer [facility] Start: 02-01-2023 End: 02-02-[address] ADAN PRITCHETT Facility:[facility] Start: 12-20-2022 End: 12-20-2022 ambulatory Piter Oberer Other [employer] Other Start: 12-20-2022 Encounter for genera l adult medical examination without abnormal findings Piter Oberer [facility] Start: 12-20-2022 Periodic preventive med est patient 40-64yrs Piter Oberer [facility] Start: 12-18-2021 End: 12-18-2021 ambulatory Piter Oberer Other [employer] Other Start: 12-18-2021 Encounter for genera l adult medical examination without abnormal findings Piter Oberer [facility] Start: 12-18-2021 Periodic preventive med est patient 40-64yrs Piter Oberer [facility] Start: 01-18-2004 Evaluation and management of inpatient Steven Visci DO Work Phone: [facility] Work Phone: Immunizations Immunization Date Immunization Notes Care Provider [facility] 12-31-2019 influenza, injectable, quadrivalent, preservative free Piter Oberer Other [facility] 12-31-2019 tetanus toxoid, reduced diphtheria toxoid, and acellular pertussis vaccine, adsorbed Piter Oberer Other [facility] 11-05-2011 tetanus toxoid, reduced diphtheria toxoid, and acellular pertussis vaccine, adsorbed Piter Oberer Other [facility] NEGATED: Highlighted row has not occurred!12-27-2020 influenza, seasonal, injectable Patient Objection Piter Oberer Other [facility] [employer] Other NEGATED: Highlighted row has not occurred!10-24-2017 influenza, seasonal, injectable Patient Objection Piter Hope Other [facility] [employer] Other Payers Date Payer Category Payer Private Health Insurance [id number] 1970 Unknown [id number] 1970 Unknown [id number] 1957 Self-pay 1957 Unknown [id number] Unknown [id number] Social History Date Type Detail Facility Unknown if ever smoked [employer] Other Sex Assigned At Sex Assigned At Bir th [employer] Other Start: 12-22-2024 Tobacco smoking status NHIS Never smoked tobacco (finding) [facility] Start: 12-22-2024 Sex Female (finding) [facility] Start: 1970 Sex Assigned At Female F [facility] Evaluation note 02-14-2023 Note Date & Type Note Facility 02-14-2023 Evaluation note Encounter Date Diagnosis Assessment Notes February, Colon cancer screening (ICD-10 - Z12.11) [employer] Other Evaluation note 12-20-2022 Note Date & [...] that I view the colonoscopy as the Gee and stool sampling techniques as the Chevy [...] profile, hemoglobin A1c and sooner as needed. [employer] Other Evaluation note 12-18-2021 Note Date & Type Note Facility 12-18-2021 Evaluation note Encounter Date Diagnosis Assessment Notes Dec, Wellness examination (ICD-10 - Z00.00) Well care discussed Healthy activity, diet, staying physically fit encouraged Female cancer screening up-to-date Dr. Rojo Colon cancer screening options discussed, stool sampling such as Hemoccult versus colonoscopy. Told her it is the Chevy versus the [place] . She wants to think about it [...] needed. Should not need labs next visit. [employer] Other Evaluation note Note Date & Type Note Facility Evaluation note No assessment information availa [facility] Work Phone: History general Narrative - Reported Note Date & Type Note Facility History general Narrative - Reported Type Medical History Dr Rojo- female exams Medical History Natural Shingles- 2017 [employer] Other Summary Purpose Family History Relationship Condition [...] Follow up, GERD impro ralph LB, pharmacy [facility], doing well no concerns at this time LB, Mammogram last December, Age 89 year Follow up, pharmacy: [facility] - jld, refills: none needed - jld, mammogram: 01.30.22 - jld, flu shot 12.31.19 - declines today - jld, colonoscopy: was supposed to last year, did not schedule. Open to hemoccult - jld, pt is doing well, denies c/o at this time - heather, Dr. Rojohemoccult results INFORMATION SOURCE (unrecogn ized section and content) DATE CREATED AUTHOR 02/08/2023 [facility] DATE CREATED AUTHOR AUTHOR'S EMANUEL MARTINEZ 04/03/2024 [facility] Care [...] BE BASED ON THE PRIMARY CLINICAL RECORDS. [facility] [employer] [facility]. provides no warranty or guarantee of the accuracy or completeness of information in this document.
== END 2025-03-17 07:21 | disposition home or self-care (01) ==
LOC: MAMMO 07:20
PROVIDERS: PCP Family Medicine; Visit Provider Obstetrics & Gynecology
DX: Z12.31 Encounter for screening mammogram for malignant neoplasm of breast (principal); Z80.3 Family history of malignant neoplasm of breast
CPT/HCPCS: 77063; 77067